=== PATIENT | female | born 2000 | race Caucasian/White ===

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

== ENCOUNTER 2023-07-31 06:06 | Inpatient (IN) | payer OTHER ==
--- NOTE | 2023-07-30 12:31 | P.HPOB ---
History of Present Illness H&P Date: 07/30/23 Chief Complaint: Requested induction of labor This patient is a pleasant 23-year-old 1 para 0 female estimated date of confinement 08/03/2023 estimated gestational age 39-3/7 weeks who presents to labor and delivery for requested induction of labor. care has been uncomplicated and she is requesting delivery at this time. Review of Systems Genitourinary: Reports Menstruation: Reports amenorrhea Past Medical History Past Medical History: Asthma, GERD/Reflux History of Any Multi-Drug Resistant Organisms: None Reported Past Surgical History: Appendectomy Past Psychological History: Anxiety Smoking Status: Never smoker Past Alcohol Use History: None Reported Past Drug Use History: None Reported, Marijuana Medications and Allergies Allergies Allergy/AdvReac Type Severity Reaction Status Date / Time Sulfa (Sulfonamide Allergy Unknown Verified 09/13/21 16:16 Antibiotics) Exam - OBG Physical Exam Abdomen: bowel sounds normal, no diffuse tenderness, no bruit present, no guarding noted, no hepatomegaly, no splenomegaly, no mass Vulva: both: normal Vagina: normal moisture, no discharge Cervix: no lesion (Cervix is 3 cm dilated 80% effaced.), no discharge Uterus: enlarged (Fundal height is 39 cm) Results labs show she is A+, rubella immune, RPR is nonreactive, hepatitis B and C are negative, Glucola was normal, group B strep was negative, ultrasounds has shown normal anatomy and growth. Assessment and Plan Assessment: This is a pleasant 23-year-old 1 para 0 female 39-3/7 weeks gestation admitted to labor and delivery for requested induction of labor. Plan is induction of labor and anticipate vaginal delivery. (1) 39 weeks gestation of Status: Acute Code(s): Z3A.39 - 39 WEEKS GESTATION OF SNOMED Code(s): 24728523 (2) Elective induction of labor planned Status: Acute Code(s): LRL1548 - SNOMED Code(s): 487275229
[2023-07-31] MEDS ORDERED: TRANEXAMIC 1,000 MG/100ML-NACL 1,000 MG in EMPTY BAG 1 BAG IV PRN (06:21)
[2023-07-31] MEDS ORDERED: LACTATED RINGERS 1,000 ML IV SCH (06:21)
[2023-07-31] MEDS ORDERED: OXYTOCIN 30 UNITS/500 ML NS 30 UNIT in SALINE 1 500ML.BAG IV SCH ×2 (06:21→12:45)
[2023-07-31] MEDS ORDERED: METHYLERGONOVINE 0.2 MG/ML 1 ML AMP IM PRN (06:21)
[2023-07-31] MEDS ORDERED: OXYTOCIN 10 UNIT/ML 1 ML VIAL IM PRN (06:21)
[2023-07-31] MEDS ORDERED: CARBOPROST TROMETHAMINE 250 MCG/ML 1 ML AMP IM PRN (06:21)
[2023-07-31] MEDS ORDERED: TERBUTALINE 1 MG/ML VIAL SQ PRN (06:21)
[2023-07-31] MEDS ORDERED: miSOPROStoL 200 MCG TAB PO PRN (06:21)
[2023-07-31] MEDS ORDERED: LIDOCAINE 0.5% (PF) 5 MG/ML (50 ML SDV) SQ PRN (06:21)
[2023-07-31 06:43] LABS: Basophils % (A) 0 %; Eosinophils # (A) 0.1 k/uL (0-0.7); Eosinophils % (A) 1 %; HCT 34.3 % (34.0-46.0); HGB 11.6 gm/dL (11.4-16.0); Lymphocytes # (A) 1.9 k/uL (1.0-4.8); Lymphocytes % (A) 20 %; MCH 27.7 pg (25.0-35.0); MCHC 33.9 g/dL (31.0-37.0); MCV 81.6 fL (80.0-100.0); Mean Platelet Volume 8.5; Monocytes # (A) 0.4 k/uL (0-1.0); Monocytes % (A) 5 %; Neutrophils # (A) 6.8 k/uL (1.3-7.7); Neutrophils % (A) 73 %; Platelet Count 230 k/uL (150-450); RDW 12.8 % (11.5-15.5); WBC 9.4 k/uL (3.8-10.6)
[2023-07-31] MEDS ORDERED: LANOLIN CREAM 5 GM TUBE TOPICAL PRN (12:35)
[2023-07-31] MEDS ORDERED: diphenhydrAMINE 50 MG/ML 1 ML VIAL IVP PRN (12:35)
[2023-07-31] MEDS ORDERED: ACETAMINOPHEN ORAL SUSP 160 MG/5 ML CUP PO PRN (12:35)
[2023-07-31] MEDS ORDERED: SIMETHICONE 80 MG CHEWABLE PO PRN (12:35)
[2023-07-31] MEDS ORDERED: bisacodyL 10 MG SUPP RECTAL PRN (12:35)
[2023-07-31] MEDS ORDERED: IBUPROFEN 600 MG TAB PO PRN (12:35)
[2023-07-31] MEDS ORDERED: diphenhydrAMINE 25 MG CAP PO PRN (12:35)
[2023-07-31] MEDS ORDERED: HYDROCORTISONE 2.5% RECTAL CREAM 30 GM TUBE RECTAL PRN (12:35)
[2023-07-31] MEDS ORDERED: BENZOCAINE/MENTHOL SPRAY 1 GM/SPRAY AEROSOL TOPICAL PRN (12:35)
[2023-07-31] MEDS ORDERED: ZOLPIDEM 5 MG TAB PO PRN (12:35)
--- NOTE | 2023-07-31 12:40 | P.PROBDLV ---
Vaginal Delivery Note - . Vaginal Delivery Note: Normal vaginal delivery viable female Apgars are 9 and 9 delivery time is 1213 hrs. Please see dictated H&P for intimate details of this patient's admission. Brief summary this is a pleasant 23-year-old 1 para 0 female 39-4/7 weeks gestation who is admitted to labor and delivery for requested induction of labor. On admission patient is 3 cm dilated has artificial rupture membranes for clear fluid. Labor is induced with Pitocin per protocol. Labor progresses and she quickly gets to complete. Patient pushes for approximately 1 hour pushes the head to the perineum. This time she does have some bradycardia which does not resolve and I discussed doing a midline episiotomy and she is agreeable. I infiltrate posterior perineum. Midline episiotomy is made. With one push we then have delivery the infant's head over the perineum. Infant's head is straight occiput anterior presentation. Mouth and nares are bulb suctioned. There is a hand presenting anteriorly but no evidence of a nuchal cord. With gentle downward traction we then have deliver the anterior and posterior shoulder and rest this 's body. This is a vigorous viable female Apgars 9 and 9 delivery time was 1213 hrs. After delivery of the and the cord is done pulsating, the umbilical cord is doubly clamped and cut appears to be trivascular. The placenta then spontaneously delivers intact. Inspection of perineum shows second-degree laceration which is easily repaired with 3-0 Vicryl in the usual fashion. Excellent reapproximation is noted. Estimated blood loss is approximately 100 mL. All counts are correct 3. There are no complications. Infant and mother stable delivery room.
[2023-07-31] MEDS: SENNOSIDES-DOCUSATE SODIUM 1 EACH TAB PO SCH (20:36)
--- NOTE | 2023-08-01 05:52 | P.PNOBGVD ---
Subjective - Subjective Patient reports: Reports appetite normal, Reports voiding normally, Reports pain well controlled, Reports ambulating normally : doing well Objective - Latest Vital Signs Latest vital signs: Vital Signs Temp Pulse Resp BP Pulse Ox 08/01/23 00:15 98.5 F 77 14 134/85 98 07/31/23 20:10 98.5 F 93 18 146/83 99 07/31/23 16:04 98.4 F 75 16 137/63 99 07/31/23 14:40 72 16 129/63 97 07/31/23 14:10 76 16 119/67 97 07/31/23 13:40 81 16 121/65 97 07/31/23 13:25 83 16 130/72 97 07/31/23 13:10 83 16 129/63 98 07/31/23 12:55 83 16 111/63 97 07/31/23 12:40 97.6 F 80 16 121/57 97 Intake and Output 07/31/23 07/31/23 08/01/23 14:59 22:59 06:59 Intake Total 500 Output Total 310 Balance -310 500 Intake: Oral 500 Output: Estimated Blood Loss 100 Output, Quantitative 210 Blood Loss Other: # Voids 1 1 - Exam Lungs: bilateral: normal Chest: Normal S1, Normal S2 Extremities: Present: normal Abdomen: Present: normal appearance, soft Uterus: Present: normal, firm Assessment and Plan Assessment: day #1. Patient is resting without complaints and wishes to go home. Vital signs are stable she's afebrile. Uterus is firm nontender and she is having normal lochia. My impression that this is a normal course. Plan is to check a CBC, encourage ambulation, and continue routine care. Most likely discharge home later today. (1) 39 weeks gestation of Current Visit: No Status: Acute Code(s): Z3A.39 - 39 WEEKS GESTATION OF SNOMED Code(s): 15424526 (2) Elective induction of labor planned Current Visit: No Status: Acute Code(s): SGX6603 - SNOMED Code(s): 405 659501
--- NOTE | 2023-08-01 05:58 | P.DS ---
Providers Date of admission: 07/31/23 06:06 Expected date of discharge: 08/01/23 Attending physician: Mati Moreno Primary care physician: Stated None - Discharge Diagnosis(es) (1) 39 weeks gestation of Current Visit: No Status: Acute (2) Elective induction of labor planned Current Visit: No Status: Acute Hospital Course: Please see dictated H&P for intimate details of this patient's admission. In brief summary this is a pleasant 23-year-old 1 para 0 female 39-4/7 weeks gestation admitted to labor and delivery for requested induction of labor. Patient quickly goes on have a vaginal delivery viable female . Please see dictated delivery note. day #1 patient is without complaints and wishes to go home. Patient's felt be stable for discharge home follow up with me in 6 weeks. Procedures: Induction of labor and normal vaginal delivery Patient Condition at Discharge: Good Plan - Discharge Summary New Discharge Prescriptions: New Ibuprofen [Motrin] 600 mg PO Q6HR PRN #30 tab PRN Reason: Mild Pain (Scale 1 To 3) No Action Vit No.179/Iron/Folic [ Tablet] Discharge Medication List Vit No.179/Iron/Folic [ Tablet] 07/31/23 [History] Ibuprofen [Motrin] 600 mg PO Q6HR PRN #30 tab 08/01/23 [Rx] Follow up Appointment(s)/Referral(s): Mati Moreno MD [STAFF PHYSICIAN] - 09/11/23 10:45 am Patient Instructions/Handouts: Vaginal Delivery (DC) Activity/Diet/Wound Care/Special Instructions: No intercourse or anything per vagina for 6 weeks. Please call if any fever, chills, excessive vaginal bleeding, and/or abdominal pain Discharge Disposition: HOME SELF-CARE
[2023-08-01 06:59] LABS: Basophils % (A) 0 %; Eosinophils % (A) 0 %; HCT 31.7 % (34.0-46.0); HGB 10.6 gm/dL (11.4-16.0); Lymphocytes # (A) 1.6 k/uL (1.0-4.8); Lymphocytes % (A) 14 %; MCH 27.5 pg (25.0-35.0); MCHC 33.4 g/dL (31.0-37.0); MCV 82.5 fL (80.0-100.0); Mean Platelet Volume 8.7; Monocytes # (A) 0.6 k/uL (0-1.0); Monocytes % (A) 5 %; Neutrophils # (A) 9.2 k/uL (1.3-7.7); Neutrophils % (A) 79 %; Platelet Count 201 k/uL (150-450); RBC 3.85 m/uL (3.80-5.40); RDW 13.1 % (11.5-15.5); WBC 11.7 k/uL (3.8-10.6)
[2023-08-01] MEDS: SENNOSIDES-DOCUSATE SODIUM 1 EACH TAB PO SCH (09:12)
[2023-08-01 17:35] VITALS: BP 124/74; PULSE 72; RESP 18; TEMP 98.2
== END 2023-08-01 19:15 | disposition home or self-care (01) | DRG 807 ==
LOC: 4FBP 06:06
PROVIDERS: ADMIT Obstetrics & Gynecology; ATTEND Obstetrics & Gynecology
DX: O76 Abnormality in fetal heart rate and rhythm complicating labor and delivery (principal); Z37.0 Single live birth; J45.909 Unspecified asthma, uncomplicated; F41.9 Anxiety disorder, unspecified; O99.52 Diseases of the respiratory system complicating childbirth; O99.344 Other mental disorders complicating childbirth; Z3A.39 39 weeks gestation of pregnancy; O99.62 Diseases of the digestive system complicating childbirth; Z88.2 Allergy status to sulfonamides; K21.9 Gastro-esophageal reflux disease without esophagitis
CPT/HCPCS: 85025; 86850; 86900; 86901